=== PATIENT | female | born 1970 ===

== ENCOUNTER 2018-03-11 11:02 | Outpatient (CLI) | payer OTHER | END 2018-03-11 11:03 | disposition home or self-care (01) | LOC: C.LAB 11:02 | DX: D64.9 Anemia, unspecified (principal); E03.9 Hypothyroidism, unspecified ==

== ENCOUNTER 2018-03-18 09:55 | Outpatient (CLI) | payer OTHER | END 2018-03-18 09:56 | disposition home or self-care (01) | LOC: C.CTH 09:55 ==